=== PATIENT | male | born 1945 | race Two or more races ===

== ENCOUNTER 2023-04-22 07:10 | Outpatient (CLI) | payer OTHER | END 2023-04-22 07:13 | disposition home or self-care (01) | LOC: NUCLEAR 07:10 | PROVIDERS: ATTEND Specialist | DX: I11.9 Hypertensive heart disease without heart failure (principal); E78.5 Hyperlipidemia, unspecified; I25.9 Chronic ischemic heart disease, unspecified | CPT/HCPCS: 78452; 93017; A9500 ==